=== PATIENT | female | born 1980 | race Caucasian/White ===

== ENCOUNTER 2018-05-04 12:40 | Emergency (ER) | payer OTHER ==
[2018-05-04 13:05] VITALS: BP 127/83
--- NOTE | 2018-05-04 13:52 | RADIOLOGY REPORT (SQ) ---
EXAM DESCRIPTION: CHEST 2 VIEWS COMPLETED DATE/TIME: 05/04/2018 1:42 pm REASON FOR STUDY: cough COMPARISON: None. EXAM PARAMETERS: NUMBER OF VIEWS: two views TECHNIQUE: Digital Frontal and Lateral radiographic views of the chest acquired. RADIATION DOSE: NA LIMITATIONS: none FINDINGS: LUNGS AND PLEURA: No opacities, masses or pneumothorax. No pleural effusion. MEDIASTINUM AND HILAR STRUCTURES: No masses or contour abnormalities. HEART AND VASCULAR STRUCTURES: Heart normal size. No evidence for failure. BONES: No acute findings. HARDWARE: None in the chest. OTHER: No other significant finding. IMPRESSION: NO ACUTE RADIOGRAPHIC FINDING IN THE CHEST. TECHNICAL DOCUMENTATION: JOB ID: [id number] [employer]- All Rights Reserved Reading location - IP/workstation name: [email or web address]
--- NOTE | 2018-05-04 14:14 | ER Document Report ---
HPI - HPI Pain Level: 2 Context: Patient is a 37-year-old female presents emergency department with a chief complaint of sinus congestion, nonproductive cough and body aches. states that she has been sick since Saturday. They did see primary care on and was given an antibiotic for her sore throat. states that he was concerned because he was told that her presentation is more consistent with a viral upper respiratory infection and he did not understand why the antibiotic is necessary. Patient is a non-smoker otherwise healthy female - EENT EENT: REPORTS: Sore Throat - RESPIRATORY Respiratory: REPORTS: Trouble Breathing - at night, Coughing Past Medical History - Social History Smoking Status: Current Every Day Smoker Chew tobacco use (# tins/day): No Frequency of alcohol use: None Drug Abuse: None Family History: Reviewed & Not Pertinent Patient has suicidal ideation: No Patient has homicidal ideation: No Renal/ Medical History: Denies: Hx Peritoneal Dialysis Past Surgical History: Reports: Hx Section Vertical Provider Document - CONSTITUTIONAL Agree With Documented VS: Yes Notes: PHYSICAL EXAM GENERAL: Alert, interacts well. HEENT: NCAT, pale conjunctiva, extraocular movements intact, pupils PERRL. external ear normal, no evidence of external auditory canal tenderness, blood/ drainage, cerumen impaction, TM intact without evidence of effusion, bulging, injection, MMM, Uvula midline. Airway patent. No evidence of tonsillar enlargement, peritonsillar abscess, retropharyngeal abscess. NECK: Full range of motion. Supple. Trachea midline. LUNGS: Clear to auscultation bilaterally, no wheezes, rales, or rhonchi. No respiratory distress. HEART: Regular rate and rhythm. No murmurs, gallops, or rubs. EXTREMITIES: Moves all 4 extremities spontaneously. No edema, radial and dorsalis pedis pulses 2/4 bilaterally. No cyanosis. NEUROLOGICAL: Alert and oriented x4. Normal speech. PSYCH: Normal affect, normal mood. SKIN: Warm, dry, normal turgor. No rashes or lesions noted. Course - Re-evaluation Re-evalutation: 05/04/18 14:14 Presentation is most consistent with a viral upper respiratory infection. Patient is overall well appearance, vitals within normal limits, well-hydrated. Patient denies any headache, neck pain, and has no evidence of meningismus on examination. Lungs are clear bilaterally. No evidence of respiratory distress. Based on clinical exam and history, I do not suspect an acute pneumonia, meningitis, strep pharyngitis, or an acute encephalitis. X-ray without any evidence of pneumonia. No laboratory or imaging testing is indicated at this time. Will discharge patient with return precautions and followup recommendations. They are in agreement this plan have verbalized understanding return precautions. - Vital Signs Vital signs: Temp Pulse Resp BP Pulse Ox 98.9 F 85 16 127/83 H 99 05/04/18 13:03 05/04/18 13:03 05/04/18 13:03 05/04/18 13:03 05/04/18 13:03 Discharge - Discharge Clinical Impression: URI (upper respiratory infection) Qualifiers: URI type: unspecified viral URI Qualified Code(s): J06.9 - Acute upper respiratory infection, unspecified Condition: Good Disposition: HOME, SELF-CARE Additional Instructions: Your symptoms are most likely due to a viral infection it should resolve over the next 7-14 days. You should take ycav-evf-kyomgmn guanfacine per bottle instructions to help thin the mucus. You can utilize Claritin-D or Lucia-D for decongestant and antihistamine for nasal congestion: I would recommend that you get gcso-xoo-kzonhqv oxymetazoline also known is afrin. Use only per bottle instructions and be sure to never use this for more than 3 days if you can develop severe rebound congestion. You may also use tylenol or ibuprofen as needed for aches and thorat discomfort. Please be sure to drink plenty of fluids and get rest. Return to the emergency department he began having difficulty breathing, chest pain, persistent vomiting, or any other symptoms that are concerning to you. Please stop taking your antibiotic it is contraindicated for your viral infection Prescriptions: Benzonatate [Tessalon Perle 100 mg Capsule] 100 mg PO ASDIR PRN #40 cap PRN Reason: Cough
== END 2018-05-04 14:19 | disposition home or self-care (01) ==
LOC: ER 12:40
DX: J06.9 Acute upper respiratory infection, unspecified (principal); R09.81 Nasal congestion; M79.1 Myalgia; F17.200 Nicotine dependence, unspecified, uncomplicated
CPT/HCPCS: 71046; 99283

== ENCOUNTER 2018-07-09 13:42 | Emergency (ER) | payer OTHER ==
[2018-07-09] MEDS ORDERED: NORMAL SALINE 1000 ML 1,000 ML IV ONE (14:34)
--- NOTE | 2018-07-09 14:34 | ER Document Report ---
ED Medical Screen (RME) - General Chief Complaint: Vaginal Bleeding Stated Complaint: VAGINAL BLEEDING Time Seen by Provider: 07/09/18 14:30 Notes: 37 years old female presents today with vaginal bleeding bleeding heavily passing clots for the last few days. Associated with general weakness and tiredness. With a history of irregular menstrual cycle. TRAVEL OUTSIDE OF THE [place] IN LAST 30 DAYS: No - Related Data Allergies/Adverse Reactions: No Known Allergies Allergy (Verified 07/09/18 13:46) Past Medical History - Social History Chew tobacco use (# tins/day): No Frequency of alcohol use: None Drug Abuse: None Renal/ Medical History: Denies: Hx Peritoneal Dialysis Past Surgical History: Reports: Hx Section Physical Exam - Vital signs Vitals: Temp Pulse Resp BP Pulse Ox 98.7 F 86 18 115/66 99 07/09/18 14:08 07/09/18 14:08 07/09/18 14:08 07/09/18 14:08 07/09/18 14:08 Course - Vital Signs Vital signs: Temp Pulse Resp BP Pulse Ox 98.7 F 86 18 115/66 99 07/09/18 14:08 07/09/18 14:08 07/09/18 14:08 07/09/18 14:08 07/09/18 14:08 Doctor's Discharge - Discharge Referrals: TONY CHATTERJEE MD [Primary Care Provider] - Follow up as needed
[2018-07-09 16:11] LABS: ABSOLUTE LYMPHOCYTES (AUTO) 1.7 10^3/uL (0.5-4.7); ABSOLUTE MONOCYTES (AUTO) 0.3 10^3/uL (0.1-1.4); ABSOLUTE NEUT (AUTO) 5.2 10^3/uL (1.7-8.2); BASOPHILS % (AUTO) 0.3 % (0-2); EOSINOPHILS % (AUTO) 0.3 % (0-6); HEMATOCRIT 34.2 % (36.0-47.0); HEMOGLOBIN 11.5 g/dL (12.0-15.5); MEAN CORPUSCULAR HEMOGLOBIN 27.7 pg (27.0-33.4); MEAN CORPUSCULAR HGB CONC 33.5 g/dL (32.0-36.0); MEAN CORPUSCULAR VOLUME 83 fl (80-97); MONOCYTES % (AUTO) 4.1 % (3-13); PLATELET COUNT 299 10^3/uL (150-450); RED BLOOD COUNT 4.13 10^6/uL (3.72-5.28); RED CELL DISTRIBUTION WIDTH 15.7 % (11.5-14.0); SEGMENTED NEUTROPHILS % (AUTO) 71.3 % (42-78); TOTAL CELLS COUNTED % (AUTO) 100 %; WHITE BLOOD COUNT 7.2 10^3/uL (4.0-10.5)
[2018-07-09 16:29] LABS: BILIRUBIN,URINE NEGATIVE (NEGATIVE); GLUCOSE, URINE NEGATIVE (NEGATIVE); KETONES,URINE NEGATIVE (NEGATIVE); LEUKOCYTE ESTERASE,URINE NEGATIVE (NEGATIVE); NITRITE,URINE NEGATIVE (NEGATIVE); PROTEIN,URINE NEGATIVE (NEGATIVE); URINE SPECIFIC GRAVITY 1.012; UROBILINOGEN,URINE NEGATIVE mg/dL (<2.0)
[2018-07-09 16:30] LABS: APPEARANCE,URINE CLOUDY; COLOR,URINE RED
--- NOTE | 2018-07-09 16:45 | ER Document Report ---
ED General - General Chief Complaint: Vaginal Bleeding Stated Complaint: VAGINAL BLEEDING Time Seen by Provider: 07/09/18 14:30 Notes: Patient presents with concern of vaginal bleeding that started approximately July 01 this year. Patient states that she is feeling 4-6 maxipads in a day. She presents because she has been feeling fatigued and some mild lightheadedness when walking. Denies any chest pain or shortness of breath or abdominal pain or pelvic pain. Denies any vaginal discharge smells or concerns of infection. She states that similar episode happened approximately this time last year while living in [place] and she was hospitalized for anemia with blood transfusions provided. Patient does not take any medications on a daily basis and is not on any estrogen or progesterone supplementation. No known medical problems other than history of dysfunctional uterine bleeding. She currently does not have an OB GEN her family care to recently moving to the area her is in the and she has TRAVEL OUTSIDE OF THE [place] IN LAST 30 DAYS: No - Related Data Allergies/Adverse Reactions: No Known Allergies Allergy (Verified 07/09/18 13:46) Past Medical History - Social History Smoking Status: Never Smoker Chew tobacco use (# tins/day): No Frequency of alcohol use: None Drug Abuse: None Family History: Reviewed & Not Pertinent Patient has suicidal ideation: No Patient has homicidal ideation: No Renal/ Medical History: Denies: Hx Peritoneal Dialysis Past Surgical History: Reports: Hx Section Review of Systems - Review of Systems Constitutional: No symptoms reported EENT: No symptoms reported Cardiovascular: No symptoms reported Respiratory: No symptoms reported Gastrointestinal: No symptoms reported Genitourinary: See HPI Female Genitourinary: No symptoms reported Musculoskeletal: No symptoms reported Skin: No symptoms reported Hematologic/Lymphatic: No symptoms reported Neurological/Psychological: No symptoms reported Physical Exam - Vital signs Vitals: Temp Pulse Resp BP Pulse Ox 98.7 F 86 18 115/66 99 07/09/18 14:08 07/09/18 14:08 07/09/18 14:08 07/09/18 14:08 07/09/18 14:08 - General General appearance: Appears well, Alert - HEENT Head: Normocephalic, Atraumatic Eyes: Normal Conjunctiva: Other - Mild pallor conjunctivae Pupils: PERRL - Respiratory Respiratory status: No respiratory distress Chest status: Nontender Breath sounds: Normal Chest palpation: Normal - Cardiovascular Rhythm: Regular Heart sounds: Normal auscultation Murmur: No - Abdominal Inspection: Normal Distension: No distension Bowel sounds: Normal Tenderness: Nontender - Back Back: Normal - Neurological Cognition: Normal Orientation: AAOx4 Course - Re-evaluation Re-evalutation: 07/09/18 17:19 Discussed case with OB GEN campus receptionist Dr. Lombardi. Hemoglobin slightly below normal at 11.5. Patient has normal vitals. Will provide Provera and refer to Dr. Lombardi for outpatient follow-up and evaluation. 07/09/18 19:06 Ultrasound shows small fibroid and possible degenerative fibroid. We will continue with plan to place patient on Provera and follow-up with Dr. Lombardi's office this early next week for further evaluation provided - Vital Signs Vital signs: Temp Pulse Resp BP Pulse Ox 98.7 F 86 18 115/66 99 07/09/18 14:08 07/09/18 14:08 07/09/18 14:08 07/09/18 14:08 07/09/18 14:08 - Laboratory Result Diagrams: 07/09/18 15:50 07/09/18 16:45 Laboratory results interpreted by me: 07/09/18 07/09/18 07/09/18 15:50 15:50 16:45 Hgb 11.5 L Hct 34.2 L RDW 15.7 H Chloride 110 H Creatinine 0.49 L Urine Blood LARGE H Discharge - Discharge Clinical Impression: Dysfunctional uterine bleeding Condition: Good Disposition: HOME, SELF-CARE Instructions: Dysfunctional Uterine Bleeding ([facility]) Prescriptions: Medroxyprogesterone Acet [Provera 10 Mg Tablet] 10 mg PO DAILY #20 tablet Referrals: MISTY LOMBARDI MD [ACTIVE STAFF] - Follow up in 3-5 days
[2018-07-09 17:23] LABS: ALANINE AMINOTRANSFERASE 23 U/L (9-52); ALBUMIN 4.2 g/dL (3.5-5.0); ALKALINE PHOSPHATASE 90 U/L (38-126); ANION GAP 12 (5-19); ASPARTATE AMINO TRANSFERASE 21 U/L (14-36); BILIRUBIN,DIRECT 0.2 mg/dL (0.0-0.4); BILIRUBIN,TOTAL 0.5 mg/dL (0.2-1.3); BLOOD UREA NITROGEN 8 mg/dL (7-20); CALCIUM 8.8 mg/dL (8.4-10.2); CARBON DIOXIDE 22 mmol/L (22-30); CHLORIDE 110 mmol/L (98-107); GLUCOSE 93 mg/dL (75-110); POTASSIUM 4.1 mmol/L (3.6-5.0); SODIUM 143.6 mmol/L (137-145); TOTAL PROTEIN 7.5 g/dL (6.3-8.2)
--- NOTE | 2018-07-09 18:47 | RADIOLOGY REPORT (SQ) ---
EXAM DESCRIPTION: U/S NON OB PEL W/DOPPLER COMPLETED DATE/TIME: 07/09/2018 6:04 pm REASON FOR STUDY: vag bleed LMP 06/30/2018. COMPARISON: None. TECHNIQUE: Dynamic and static grayscale images acquired of the pelvis via transabdominal approach an d recorded on PACS. Additional selected color Doppler and spectral images recorded. LIMITATIONS: None. FINDINGS: UTERUS: 14 mm posterior fibroid. There is a 5 x 8 x 5 mm hypoechoic area within the myome trium. ENDOMETRIAL STRIPE: No focal or generalized thickening. No masses. CERVIX: 2.8 cm. A nabothian cyst is present. RIGHT OVARY AND DOPPLER: Normal size, 1.8 x 1.2 x 1.2 cm. No worrisome masses. Normal arterial vascul ar flow without evidence for torsion. LEFT OVARY AND DOPPLER: Ovary not seen. FREE FLUID: None noted. OTHER: No other significant finding. MEASUREMENTS: UTERUS: 9.5 x 5.5 x 5.4 cm. ENDOMETRIAL STRIPE: 12 mm. RIGHT OVARY: 1.8 x 1.2 x 1.2 cm. LEFT OVARY: Ovary not seen. IMPRESSION: Small uterine fibroid. Smaller hypoechoic area may represent a degenerate fibroid. Nab othian cyst. TECHNICAL DOCUMENTATION: JOB ID: [id number] [employer]- All Rights Reserved Rev Reading location - IP/workstation name: [email or web address]
[2018-07-09 19:29] VITALS: BP 115/62
== END 2018-07-09 19:28 | disposition home or self-care (01) ==
LOC: ER 13:42
DX: N93.8 Other specified abnormal uterine and vaginal bleeding (principal); R53.83 Other fatigue; R42 Dizziness and giddiness; R23.1 Pallor
CPT/HCPCS: 99284; 96360; 36415; 85025; 81025; 80053; 81001; 76856; 93976; J7030

== ENCOUNTER 2018-08-05 10:21 | Emergency (ER) | payer OTHER ==
[2018-08-05] MEDS ORDERED: NORMAL SALINE 1000 ML 1,000 ML IV ONE (10:53)
[2018-08-05] MEDS ORDERED: ONDANSETRON HCL INJ/PF 4 MG/2 ML SDV IV ONE (10:53)
[2018-08-05] MEDS ORDERED: MORPHINE SULFATE 10 MG/ML INJ IV ONE (10:54)
--- NOTE | 2018-08-05 10:55 | ER Document Report ---
ED Medical Screen (RME) - General Chief Complaint: Abdominal Pain Stated Complaint: DIZZINESS Time Seen by Provider: 08/05/18 10:43 Notes: Patient is a 37-year-old female that presents to the emergency department for chief complaint of abdominal pain and pelvic pain. ROS: GENERAL: Denies fever or chills CV: Denies chest pain PHYSICAL EXAMINATION: Vital signs reviewed. GENERAL: Well-appearing, well-nourished and in no acute distress. HEAD: Atraumatic, normocephalic. EYES: Pupils equal round extraocular movements intact, conjunctiva are normal. ENT: Nares patent NECK: Normal range of motion CV: Heart regular rate and rhythm LUNGS: No respiratory distress Abdomen: Bilateral lower abdominal tenderness to palpation. Musculoskeletal: Normal range of motion NEUROLOGICAL: Normal speech PSYCH: Normal mood, normal affect. MDM: Patient seen and examined for rapid initial assessment. Vital signs reviewed. A comprehensive ED assessment and evaluation of the patient, analysis of test results and completion of the medical decision making process will be conducted by additional ED providers. *Note is created using voice recognition software and may contain spelling, syntax or grammatical errors. TRAVEL OUTSIDE OF THE [place] IN LAST 30 DAYS: No - Related Data Allergies/Adverse Reactions: No Known Allergies Allergy (Verified 08/05/18 10:45) Past Medical History - Social History Chew tobacco use (# tins/day): No Frequency of alcohol use: None Drug Abuse: None Renal/ Medical History: Denies: Hx Peritoneal Dialysis Past Surgical History: Reports: Hx Section Physical Exam - Vital signs Vitals: Temp Pulse Resp BP Pulse Ox 97.8 F 96 24 H 114/65 100 08/05/18 10:08/05/18 10:33 08/05/18 10:33 08/05/18 10:33 08/05/18 10:33 Course - Vital Signs Vital signs: Temp Pulse Resp BP Pulse Ox 97.8 F 96 24 H 114/65 100 08/05/18 10:33 08/05/18 10:33 08/05/18 10:33 08/05/18 10:33 08/05/18 10:33 Doctor's Discharge - Discharge Referrals: TONY CHATTERJEE MD [Primary Care Provider] - Follow up as needed
[2018-08-05 11:23] LABS: ABSOLUTE BASOPHILS # (AUTO) 0.1 10^3/uL (0.0-0.2); ABSOLUTE LYMPHOCYTES (AUTO) 1.6 10^3/uL (0.5-4.7); ABSOLUTE MONOCYTES (AUTO) 0.5 10^3/uL (0.1-1.4); ABSOLUTE NEUT (AUTO) 16.5 10^3/uL (1.7-8.2); BASOPHILS % (AUTO) 0.3 % (0-2); EOSINOPHILS % (AUTO) 0.1 % (0-6); HEMATOCRIT 35.5 % (36.0-47.0); HEMOGLOBIN 11.3 g/dL (12.0-15.5); LYMPHOCYTES % (AUTO) 8.7 % (13-45); MEAN CORPUSCULAR HEMOGLOBIN 26.1 pg (27.0-33.4); MEAN CORPUSCULAR HGB CONC 31.8 g/dL (32.0-36.0); MEAN CORPUSCULAR VOLUME 82 fl (80-97); MONOCYTES % (AUTO) 2.7 % (3-13); PLATELET COUNT 360 10^3/uL (150-450); RED BLOOD COUNT 4.32 10^6/uL (3.72-5.28); RED CELL DISTRIBUTION WIDTH 15.3 % (11.5-14.0); SEGMENTED NEUTROPHILS % (AUTO) 88.2 % (42-78); TOTAL CELLS COUNTED % (AUTO) 100 %; WHITE BLOOD COUNT 18.7 10^3/uL (4.0-10.5)
[2018-08-05 13:19] LABS: ALANINE AMINOTRANSFERASE 22 U/L (9-52); ALBUMIN 3.7 g/dL (3.5-5.0); ALKALINE PHOSPHATASE 81 U/L (38-126); ANION GAP 12 (5-19); ASPARTATE AMINO TRANSFERASE 18 U/L (14-36); BILIRUBIN,DIRECT 0.2 mg/dL (0.0-0.4); BILIRUBIN,TOTAL 0.2 mg/dL (0.2-1.3); BLOOD UREA NITROGEN 10 mg/dL (7-20); CALCIUM 8.1 mg/dL (8.4-10.2); CARBON DIOXIDE 19 mmol/L (22-30); CHLORIDE 109 mmol/L (98-107); GLUCOSE 104 mg/dL (75-110); LIPASE 149.7 U/L (23-300); POTASSIUM 4.3 mmol/L (3.6-5.0); SODIUM 139.7 mmol/L (137-145); TOTAL PROTEIN 6.8 g/dL (6.3-8.2)
[2018-08-05] MEDS ORDERED: DEXTROSE 5%-LACTATED RINGERS 1,000 ML IV ONE (13:37)
[2018-08-05 13:45] LABS: APPEARANCE,URINE SLIGHTLY-CLOUDY; BILIRUBIN,URINE NEGATIVE (NEGATIVE); COLOR,URINE YELLOW; GLUCOSE, URINE 150 mg/dL (NEGATIVE); KETONES,URINE TRACE mg/dL (NEGATIVE); LEUKOCYTE ESTERASE,URINE SMALL (NEGATIVE); NITRITE,URINE NEGATIVE (NEGATIVE); PROTEIN,URINE NEGATIVE (NEGATIVE); URINE SPECIFIC GRAVITY 1.014; UROBILINOGEN,URINE NEGATIVE mg/dL (<2.0)
--- NOTE | 2018-08-05 14:31 | ER Document Report ---
ED GI/ - General Mode of Arrival: Ambulatory Information source: Patient TRAVEL OUTSIDE OF THE [place] IN LAST 30 DAYS: No <FERNANDO GUZMAN - Last Filed: 08/05/18 14:28> <ANGELA HANNAH - Last Filed: 08/05/18 16:24> - General Chief Complaint: Abdominal Pain Stated Complaint: DIZZINESS Time Seen by Provider: 08/05/18 10:43 Notes: 37-year-old female who presents to the emergency department today with complaints of abdominal pain with associated vaginal bleeding. Patient has had vaginal bleeding since July 01 when she was seen in the emergency department. Patient was sent home on Provera and she states the bleeding became much less and was essentially spotting until recently. Patient states she woke up with new abdominal pain this morning. Patient states the pain is located in her left lower quadrant. Patient denies any nausea, vomiting, or fevers. (FERNANDO GUZMAN) - Related Data Allergies/Adverse Reactions: No Known Allergies Allergy (Verified 08/05/18 10:45) Past Medical History - General Information source: Patient - Social History Smoking Status: Never Smoker Cigarette use (# per day): No Chew tobacco use (# tins/day): No Frequency of alcohol use: None Drug Abuse: None Lives with: Family Family History: Reviewed & Not Pertinent Patient has suicidal ideation: No Patient has homicidal ideation: No Renal/ Medical History: Denies: Hx Peritoneal Dialysis Past Surgical History: Reports: Hx Section <FERNANDO GUZMAN - Last Filed: 08/05/18 14:28> Review of Systems - Review of Systems Constitutional: No symptoms reported EENT: No symptoms reported Cardiovascular: No symptoms reported Respiratory: No symptoms reported Gastrointestinal: See HPI, Abdominal pain. denies: Vomiting Genitourinary: No symptoms reported Female Genitourinary: See HPI, Vaginal bleeding Musculoskeletal: No symptoms reported Skin: No symptoms reported Hematologic/Lymphatic: No symptoms reported Neurological/Psychological: No symptoms reported -: Yes All other systems reviewed and negative <FERNANDO GUZMAN - Last Filed: 08/05/18 14:28> Physical Exam <FERNANDO GUZMAN - Last Filed: 08/05/18 14:28> - Genitourinary External exam: Normal Speculum exam: Cervix open Vaginal bleeding: Mild Bimanuel exam: Other - Uterus is exquisitely tender to palpate. <ANGELA HANNAH - Last Filed: 08/05/18 16:24> - Vital signs Vitals: Temp Pulse Resp BP Pulse Ox 97.8 F 96 24 H 114/65 100 08/05/18 10:33 08/05/18 10:33 08/05/18 10:33 08/05/18 10:33 08/05/18 10:33 - Notes Notes: Physical Exam: General: Alert, appears well. HEENT: Normocephalic. Atraumatic. PERRL. Extraocular movements intact. Oropharynx clear. Neck: Supple. Non-tender. Respiratory: No respiratory distress. Clear and equal breath sounds bilaterally. Cardiovascular: Regular rate and rhythm. Abdominal: Left lower quadrant and exquisite left pelvic tenderness with palpation, no right lower quadrant tenderness to palpation. No distension. Normal Bowel Sounds. Back: Non-tender. No deformity or step off. Extremities: Moves all four extremities. Upper extremities: Normal inspection. Normal ROM. Lower extremities: Normal inspection. No edema. Normal ROM. Neurological: Normal cognition. AAOx4. Normal speech. Psychological: Normal affect. Normal Mood. Skin: Warm. Dry. Normal color. (FERNANDO GUZMAN) - Genitourinary Notes: There is organized clot in the vagina and the endocervical canal. The cervix appears to be quite dilated, and easily allowed swab to collect high endocervical or endometrial cultures. The dark blood coming from the cervix does not appear to be purulent. (ANGELA HANNAH) Course - Laboratory Result Diagrams: 08/05/18 11:10 08/05/18 11:40 <FERNANDO GUZMAN - Last Filed: 08/05/18 14:28> - Laboratory Result Diagrams: 08/05/18 11:10 08/05/18 11:40 <ANGELA HANNAH - Last Filed: 08/05/18 16:24> - Vital Signs Vital signs: Temp Pulse Resp BP Pulse Ox 98.7 F 114 H 16 116/73 100 08/05/18 15:43 08/05/18 15:43 08/05/18 15:43 08/05/18 15:43 08/05/18 15:43 - Laboratory Laboratory results interpreted by me: 08/05/18 08/05/18 08/05/18 11:10 11:40 13:28 WBC 18.7 H Hgb 11.3 L Hct 35.5 L MCH 26.1 L MCHC 31.8 L RDW 15.3 H Seg Neutrophils % 88.2 H Lymphocytes % 8.7 L Monocytes % 2.7 L Absolute Neutrophils 16.5 H Chloride 109 H Carbon Dioxide 19 L Creatinine 0.45 L Calcium 8.1 L Urine Glucose (UA) 150 H Urine Ketones TRACE H Urine Blood LARGE H Ur Leukocyte Esterase SMALL H Discharge <FERNANDO GUZMAN - Last Filed: 08/05/18 14:28> <ANGELA HANNAH - Last Filed: 08/05/18 16:24> - Discharge Clinical Impression: Endometritis Leukocytosis Qualifiers: Leukocytosis type: unspecified Qualified Code(s): D72.829 - Elevated white blood cell count, unspecified Condition: Stable Disposition: HOME, SELF-CARE Additional Instructions: Endometritis: Endometritis is an infection of the inside of the uterus. It most commonly occurs after delivery of a baby or after uterus surgery. Symptoms are usually pelvic pain, fever, and discharge. Treatment is antibiotics. These are given by vein or by injection if the infection seems serious. It's important that you receive all recommended medication. Call the doctor or return at once if you develop increasing fever, lightheadedness, or increasing pain. Take the medications as prescribed. Plenty of fluids and rest. Follow-up with [facility] tomorrow, or with the [facility] group that you have an appointment with. RETURN TO THE EMERGENCY ROOM IF ANY NEW OR WORSENING SYMPTOMS. Prescriptions: Cephalexin Monohydrate [Keflex 500 mg Capsule] 500 mg PO QID #28 capsule Doxycycline Hyclate 100 mg PO BID #14 tablet Hydrocodone/Acetaminophen [Hydrocodon-Acetaminophen 5-325] 1 each PO Q4 PRN #15 tablet PRN Reason: For Pain Referrals: TONY CHATTERJEE MD [Primary Care Provider] - Follow up as needed [facility] [Provider Group] - Follow up tomorrow Scribe Attestation: 08/05/18 16:21 I personally performed the services described in the documentation, reviewed and edited the documentation which was dictated to the scribe in my presence, and it accurately records my words and actions. (ANGELA HANNAH) Scribe Documentation - Scribe Written by Evane:: Leonardo Montanez, 08/05/2018 1430 acting as scribe for :: Jackelin <FERNANDO GUZMAN - Last Filed: 08/05/18 14:28>
--- NOTE | 2018-08-05 15:24 | RADIOLOGY REPORT (SQ) ---
EXAM DESCRIPTION: CT ABD/PELVIS WITH IV ONLY COMPLETED DATE/TIME: 08/05/2018 3:07 pm REASON FOR STUDY: LLQ, suprapubic pain, WBC 18,000 COMPARISON: Pelvic ultrasound dated 07/09/2018 TECHNIQUE: CT scan of the abdomen and pelvis performed using helical scanning technique with dynamic intravenous contrast injection. No oral contrast. Images reviewed with lung, soft tissue, and bone windows. Reconstructed coronal and sagittal MPR images reviewed. Delayed images for evaluation of the urinary system also acquired. All images stored on PACS. All CT scanners at this facility use dose modulation, iterative reconstruction, and/or weight based d osing when appropriate to reduce radiation dose to as low as reasonably achievable (ALARA). [facility]: Dose Right [facility]: CareDose [facility]: Dose Right [facility]: Teradose 4D [facility]: [employer] CONTRAST TYPE AND DOSE: contrast/concentration: Isovue 350.00 mg/ml; Total Contrast Delivered: 50.0 ml; Total Saline Delivered: 37.0 ml RENAL FUNCTION: BUN 10, creatinine 0.45 RADIATION DOSE: CT Rad equipment meets quality standard of care and radiation dose reduction techniq ues were employed. CTDIvol: 4.8 - 5.5 mGy. DLP: 533 mGy-cm.. LIMITATIONS: None. FINDINGS: LOWER CHEST: No significant findings. No nodules or infiltrates. LIVER: There is a small hepatic cyst. Normal size. SPLEEN: Normal size. No focal lesions. PANCREAS: No masses. No significant calcifications. No adjacent inflammation or peripancreatic fluid collections. Pancreatic duct not dilated. GALLBLADDER: No identified stones by CT criteria. No inflammatory changes to suggest cholecystitis. ADRENAL GLANDS: No significant masses or asymmetry. RIGHT KIDNEY AND URETER: No solid masses. No significant calcifications. No hydronephrosis or hyd roureter. LEFT KIDNEY AND URETER: No solid masses. No significant calcifications. No hydronephrosis or hydr oureter. AORTA AND VESSELS: No aneurysm. No dissection. Renal arteries, SMA, celiac without stenosis. RETROPERITONEUM: There are small nonspecific retroperitoneal lymph nodes. BOWEL AND PERITONEAL CAVITY: No masses or inflammatory changes. No free fluid or peritoneal masses. APPENDIX: Normal. PELVIS: Endometrial stripe is thickened. There is fluid in the cervix. This appears to be new from prior pelvic ultrasound. There are small bilateral ovarian cysts. There appears to be trace free fl uid in the lateral adnexum. ABDOMINAL WALL: No masses. No hernias. BONES: No significant or acute findings. OTHER: No other significant finding. IMPRESSION: Thickened endometrium. There is fluid in the cervix. These findings are new from prior pelvic ultrasound done July 09. There is a trace amount of free fluid. TECHNICAL DOCUMENTATION: JOB ID: [id number] Quality ID # [id number]: Final reports with documentation of one or more dose reduction techniques (e.g., Au tomated exposure control, adjustment of the mA and/or kV according to patient size, use of iterative reconstruction technique) 2010 [employer]- All Rights Reserved Reading location - IP/workstation name: [email or web address]
[2018-08-05] MEDS ORDERED: KETOROLAC TROMETHAMINE INJ/PF 30 MG/1 ML SDV IV ONE (15:57)
[2018-08-05] MEDS ORDERED: CEFTRIAXONE 1 GM/D5W RTU 1 GM/50 ML RTUPB IV ONE (16:12)
[2018-08-05] MEDS ORDERED: DOXYCYCLINE HYCLATE 100 MG TABLET PO ONE (16:13)
[2018-08-05 16:37] LABS: BACTERIA (WET MOUNT) 4+ BACTERIA SEEN; RBCS (WET MOUNT) 4+ RBCS SEEN; T.VAGINALIS (WET MOUNT) NO TRICHOMONAS SEEN; WBCS (WET MOUNT) 2+ WBCS SEEN; YEAST (WET MOUNT) NO YEAST SEEN
[2018-08-05] MEDS ORDERED: CEFTRIAXONE SODIUM 1,000 MG in NORMAL SALINE 50 ML IV ONE (17:00)
[2018-08-05 17:55] LABS: CHLAM PCR NOT DETECTED (NOT DETECT); GON PCR NOT DETECTED (NOT DETECT)
[2018-08-05 18:06] VITALS: BP 112/62
== END 2018-08-05 18:06 | disposition home or self-care (01) ==
LOC: ER 10:21
DX: N71.9 Inflammatory disease of uterus, unspecified (principal); D72.829 Elevated white blood cell count, unspecified
CPT/HCPCS: 99284; 96361; 96375; 96367; 36415; 87070; 87210; 83690; 84703; 85025; 87075; 87077; 80053; 81001; 87491; 87591; 74177; J1885; J2270; J0696; J2405; J7030; 87205; 96374

== ENCOUNTER 2019-08-22 04:51 | Emergency (ER) | payer OTHER ==
[2019-08-22 05:50] LABS: ABSOLUTE EOSINOPHILS # (AUTO) 0.1 10^3/uL (0.0-0.6); ABSOLUTE LYMPHOCYTES (AUTO) 1.4 10^3/uL (0.5-4.7); ABSOLUTE MONOCYTES (AUTO) 0.4 10^3/uL (0.1-1.4); ABSOLUTE NEUT (AUTO) 6.2 10^3/uL (1.7-8.2); BASOPHILS % (AUTO) 0.4 % (0-2); EOSINOPHILS % (AUTO) 1.2 % (0-6); HEMATOCRIT 38.4 % (36.0-47.0); HEMOGLOBIN 12.7 g/dL (12.0-15.5); LYMPHOCYTES % (AUTO) 17.2 % (13-45); MEAN CORPUSCULAR HEMOGLOBIN 28.6 pg (27.0-33.4); MEAN CORPUSCULAR HGB CONC 33.1 g/dL (32.0-36.0); MEAN CORPUSCULAR VOLUME 87 fl (80-97); MONOCYTES % (AUTO) 4.7 % (3-13); PLATELET COUNT 264 10^3/uL (150-450); RED BLOOD COUNT 4.44 10^6/uL (3.72-5.28); RED CELL DISTRIBUTION WIDTH 14.9 % (11.5-14.0); SEGMENTED NEUTROPHILS % (AUTO) 76.5 % (42-78); TOTAL CELLS COUNTED % (AUTO) 100 %; WHITE BLOOD COUNT 8.1 10^3/uL (4.0-10.5)
[2019-08-22 06:13] LABS: ALBUMIN 4.4 g/dL (3.5-5.0); ALKALINE PHOSPHATASE 90 U/L (38-126); ANION GAP 11 (5-19); ASPARTATE AMINO TRANSFERASE 19 U/L (14-36); BILIRUBIN,DIRECT 0.1 mg/dL (0.0-0.4); BILIRUBIN,TOTAL 0.3 mg/dL (0.2-1.3); BLOOD UREA NITROGEN 14 mg/dL (7-20); CALCIUM 9.6 mg/dL (8.4-10.2); CARBON DIOXIDE 24 mmol/L (22-30); CHLORIDE 106 mmol/L (98-107); GLUCOSE 112 mg/dL (75-110); POTASSIUM 4.4 mmol/L (3.6-5.0); TOTAL PROTEIN 7.5 g/dL (6.3-8.2)
[2019-08-22] MEDS ORDERED: NORMAL SALINE 1000 ML 1,000 ML IV ONE (06:18)
[2019-08-22] MEDS ORDERED: MORPHINE SULFATE 10 MG/ML INJ IV ONE (06:18)
--- NOTE | 2019-08-22 06:25 | ER Document Report ---
ED GI/ - General Chief Complaint: Abdominal Pain Stated Complaint: ABDOMINAL PAIN Time Seen by Provider: 08/22/19 05:53 Primary Care Provider: TONY CHATTERJEE MD [Primary Care Provider] - Follow up as needed TRAVEL OUTSIDE OF THE [place] IN LAST 30 DAYS: No - HPI Location: Suprapubic Vaginal bleeding (Compared to normal period): Heavier. denies: Passing clots, Passing tissue Menstrual period history: Abnormal Notes: 08/22/19 06:20 This is a 38-year-old female who presents today with a complaint of suprapubic pain and vaginal bleeding for the past week. Patient states that she has had some spotting for about 2 to 3 weeks, but the bleeding increased over the past week. She describes irregular menstrual periods. She states her last normal period was about 3 months ago. Describes the symptoms as moderate. There are no obvious aggravating or relieving factors. She denies any vomiting or d iarrhea. She denies any epigastric pain. - Related Data Allergies/Adverse Reactions: No Known Allergies Allergy (Verified 08/05/18 10:45) Past Medical History - Social History Smoking Status: Never Smoker Frequency of alcohol use: None Drug Abuse: None Family History: Reviewed & Not Pertinent Patient has suicidal ideation: No Patient has homicidal ideation: No Renal/ Medical History: Denies: Hx Peritoneal Dialysis Past Surgical History: Reports: Hx Section Review of Systems - Review of Systems Cardiovascular: denies: Chest pain Gastrointestinal: Abdominal pain. denies: Diarrhea, Vomiting Genitourinary: denies: Dysuria, Discharge, Frequency, Flank pain Female Genitourinary: Heavy/abnormal periods, Irregular period, Vaginal bleeding. denies: Vaginal discharge -: Yes All other systems reviewed and negative Physical Exam - Vital signs Vitals: Temp Pulse Resp BP Pulse Ox 97.6 F 97 22 H 117/74 100 08/22/19 04:56 08/22/19 04:56 08/22/19 04:56 08/22/19 04:56 08/22/19 04:56 - General General appearance: Alert, Other - Patient appears uncomfortable, in pain. - HEENT Head: Normocephalic, Atraumatic Eyes: Normal Pupils: PERRL - Respiratory Respiratory status: No respiratory distress Chest status: Nontender Breath sounds: Normal Chest palpation: Normal - Cardiovascular Rhythm: Regular Heart sounds: Normal auscultation Murmur: No - Abdominal Inspection: Normal Distension: No distension Bowel sounds: Normal Tenderness: Tender - There is suprapubic tenderness on exam. There is no upper abdominal tenderness. No guarding or rebound. Organomegaly: No organomegaly - Genitourinary Speculum exam: Cervix closed Vaginal bleeding: Moderate [place] exam: Other - There is suprapubic tenderness appreciated. There is some bleeding appreciated. 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 No: Cervical motion tender, Adnexal mass, Adnexal tenderness - Neurological Neuro grossly intact: Yes Cognition: Normal Orientation: AAOx4 [place] Coma Scale Eye Opening: Spontaneous [place] Coma Scale Verbal: Oriented [place] Coma Scale Motor: Obeys Commands [place] Coma Scale Total: 15 Speech: Normal Motor strength normal: LUE, RUE, LLE, RLE Sensory: Normal - Skin Skin Temperature: Warm Skin Moisture: Dry Skin Color: Normal Course - Re-evaluation Re-evalutation: 08/22/19 06:24 Differential diagnosis includes ruptured ovarian cysts versus fibroids versus DU B versus vaginitis. Will get ultrasound. Will check basic labs. Will manage patient's pain. 08/22/19 08:46 Patient reevaluated patient feels much better. 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 She recommends Provera 10 mg twice daily for 10 days. Patient to follow-up on Saturday or Saturday. Have discussed patient's findings and follow-up with patient and family. She understands. She is stable for discharge. We will give her a dose of Diflucan for yeast infection. - Vital Signs Vital signs: Temp Pulse Resp BP Pulse Ox 97.6 F 97 22 H 117/74 100 08/22/19 04:56 08/22/19 04:56 08/22/19 04:56 08/22/19 04:56 08/22/19 04:56 - Laboratory Result Diagrams: 08/22/19 05:35 08/22/19 05:35 Laboratory results interpreted by me: 08/22/19 08/22/19 05:35 05:35 RDW 14.9 H Glucose 112 H Lipase 323.4 H Discharge - Discharge Clinical Impression: DUB (dysfunctional uterine bleeding), Candidal vulvovaginitis Condition: Good Disposition: HOME, SELF-CARE Instructions: Vaginal Bleeding ([facility]), Vaginal Yeast Infection ([facility]) Prescriptions: Naproxen 500 mg PO BID PRN #14 tablet PRN Reason: Medroxyprogesterone Acet [Provera 10 Mg Tablet] 10 mg PO BID #20 tablet Referrals: TONY CHATTERJEE MD [Primary Care Provider] - Follow up as needed IVAN FELDER MD [ACTIVE STAFF] - (Call on Saturday for follow-up appointment.)
[2019-08-22 06:31] LABS: RBCS (WET MOUNT) 1+ RBCS SEEN; T.VAGINALIS (WET MOUNT) NO TRICHOMONAS SEEN; WBCS (WET MOUNT) NO WBCS SEEN; YEAST (WET MOUNT) YEAST SEEN
[2019-08-22 07:58] LABS: CHLAM PCR NOT DETECTED (NOT DETECT)
--- NOTE | 2019-08-22 08:28 | RADIOLOGY REPORT (SQ) ---
EXAM DESCRIPTION: U/S NON OB PEL W/DOPPLER COMPLETED DATE/TIME: 08/22/2019 7:24 am REASON FOR STUDY: pelvic pain and vaginal bleeding COMPARISON: Pelvic ultrasound 07/09/2018 TECHNIQUE: Dynamic and static grayscale images acquired of the pelvis via endovaginal and transabdom inal approach and recorded on PACS. Additional selected color Doppler and spectral images recorded. LIMITATIONS: None. FINDINGS: UTERUS: Uterus is 12 x 6 x 6 cm in size with several small fibroids less than 3 cm in size . ENDOMETRIAL STRIPE: Diffusely thickened, 2 cm in thickness at the uterine fundus, with echogenic mate rial in the cervix likely blood clot. CERVIX: Endocervical canal is filled with heterogeneous mixed echogenicity material likely blood clot . Tumor could not be excluded. RIGHT OVARY AND DOPPLER: Normal size, 2.4 x 2.3 x 2.2 cm in size, with 1.6 cm and 2 cm simple cysts. No worrisome masses. Normal arterial vascular flow without evidence for torsion. LEFT OVARY AND DOPPLER: Unable to visualize the left ovary either transabdominal or endovaginal. Lef t adnexa not well seen due to adnexal bowel gas. FREE FLUID: None noted. OTHER: No other significant finding. IMPRESSION: Distended endometrial canal with mixed echogenicity material containing into the cervix. This most likely represents blood clot. Nonvisualization left ovary and adnexa. No right-sided ovarian worrisome masses or ovarian torsion COMMENT: Urine HCG negative today TECHNICAL DOCUMENTATION: JOB ID: [id number] [employer]- All Rights Reserved Rev-04/18 Reading location - IP/workstation name: [email or web address]
[2019-08-22] MEDS ORDERED: FLUCONAZOLE 100 MG TABLET PO ONE (08:47)
[2019-08-22 09:15] VITALS: BP 111/59
== END 2019-08-22 09:15 | disposition home or self-care (01) ==
LOC: ER 04:51
DX: N93.8 Other specified abnormal uterine and vaginal bleeding (principal); B37.3 Candidiasis of vulva and vagina; R10.30 Lower abdominal pain, unspecified; N92.6 Irregular menstruation, unspecified
CPT/HCPCS: 99284; 96361; 96374; 36415; 87210; 84702; 83690; 85025; 80053; 87491; 87591; 76856; 93976; J2270; J7030

== ENCOUNTER 2020-02-03 04:24 | Emergency (ER) | payer OTHER ==
--- NOTE | 2020-02-03 05:14 | ER Document Report ---
ED General - General Chief Complaint: Palpitations Stated Complaint: BLOOD PRESSURE ISSUES Time Seen by Provider: 02/03/20 04:58 Primary Care Provider: TONY CHATTERJEE MD [Primary Care Provider] - 02/11/20 Mode of Arrival: Ambulatory Information source: Patient Notes: This 39-year-old female presents emergency department with complaints of feeling agitated palpitations. Reports she was sleeping when she woke up and felt agitated. She denies fever nausea vomiting diarrhea. Reports she had a headache behind her eyes last night but no headache now. Patient [facility] Saturday for same symptoms and nothing was found. Patient reports she has been having high blood pressure. They checked it before she came to this ED and it was 131 systolic. She denies past medical history. Denies chest pain. Denies abdominal pain. Denies pain with void. Patient reports she has low back pain. Reports she has had it for over a year. reports they have set up an appointment with [facility] on February 10 for a full physical. TRAVEL OUTSIDE OF THE [place] IN LAST 30 DAYS: No - HPI Onset: Just prior to arrival Onset/Duration: Sudden Quality of pain: No pain Associated symptoms: None. denies: Chest pain Exacerbated by: Denies Relieved by: Denies Similar symptoms previously: Yes Recently seen / treated by doctor: Yes - Related Data Allergies/Adverse Reactions: No Known Allergies Allergy (Verified 02/03/20 04:30) Home Medications: VITAMINS Past Medical History - General Information source: Patient Last Menstrual Period: dec - Social History Smoking Status: Never Smoker Cigarette use (# per day): No Frequency of alcohol use: None Drug Abuse: None Lives with: Family Family History: Reviewed & Not Pertinent Patient has suicidal ideation: No Patient has homicidal ideation: No - Medical History Medical History: Negative Renal/ Medical History: Denies: Hx Peritoneal Dialysis Past Surgical History: Reports: Hx Section Review of Systems - Review of Systems Notes: Review HPI for review of systems., All other systems negative Physical Exam - Vital signs Vitals: Temp Pulse BP Pulse Ox 97.9 F 94 115/70 99 02/03/20 04:29 02/03/20 04:29 02/03/20 04:29 02/03/20 04:29 - General General appearance: Appears well, Alert In distress: None - HEENT Head: Normocephalic Eyes: Normal Conjunctiva: Normal Extraocular movements intact: Yes Eyelashes: Normal Pupils: PERRL Ears: Normal External canal: Normal Tympanic membrane: Normal Nasal: Normal Mouth/Lips: Normal Mucous membranes: Normal, Moist Pharynx: Normal. No: Erythema, Peritonsillar abscess Neck: Normal, Supple. No: Lymphadenopathy - Respiratory Respiratory status: No respiratory distress Chest status: Nontender Breath sounds: Normal Chest palpation: Normal - Cardiovascular Rhythm: Regular Heart sounds: Normal auscultation Murmur: No Normal capillary refill: Yes - Abdominal Inspection: Normal Distension: No distension Bowel sounds: Normal Tenderness: Nontender Organomegaly: No organomegaly - Back Back: Normal - Extremities General upper extremity: Normal ROM General lower extremity: Normal ROM, Normal weight bearing - Neurological Neuro grossly intact: Yes Cognition: Normal Orientation: AAOx4 [place] Coma Scale Eye Opening: Spontaneous [place] Coma Scale Verbal: Oriented [place] Coma Scale Motor: Obeys Commands [place] Coma Scale Total: 15 Speech: Normal Cerebellar coordination: Normal - Psychological Associated symptoms: Normal affect, Normal mood - Skin Skin Temperature: Warm Skin Moisture: Dry Skin Color: Normal Course - Re-evaluation Re-evalutation: 02/03/20 05:13 This 39-year-old female with no prior history presents emergency department with complaints of waking up feeling agitated. Reports she felt like her heart was racing. Palpitations. Denies chest pain denies abdominal pain. Denies history of cardiac disease. Patient is calm. Respiratory rate even unlabored. Patient and family instructed on blood work chest x-ray. They verbalized understanding. 02/03/20 07:01 All labs unremarkable TSH 2.10, chest x-ray negative. Vital signs stable. Patient resting quietly on the stretcher watching TV no distress. Patient and family instructed on all results. Instructed on the importance of monitoring her symptoms follow-up with her primary care provider as scheduled for full physical. They verbalized understanding. Laboratory 02/03/20 02/03/20 02/03/20 05:10 05:10 05:10 WBC 6.0 RBC 4.76 Hgb 13.7 Hct 39.1 MCV 82 MCH 28.8 MCHC 35.1 RDW 16.4 H Plt Count 241 Lymph % (Auto) 26.1 [place] % (Auto) 6.5 Eos % (Auto) 3.5 Baso % (Auto) 0.3 Absolute Neuts (auto) 3.8 Absolute Lymphs (auto) 1.6 Absolute Monos (auto) 0.4 Absolute Eos (auto) 0.2 Absolute Basos (auto) 0.0 Seg Neutrophils % 63.6 Sodium 140.6 Potassium 3.9 Chloride 106 Carbon Dioxide 23 Anion Gap 12 BUN 9 Creatinine 0.52 Est GFR ( Amer) > 60 Est GFR (MDRD) Non-Af > 60 Glucose 108 Calcium 9.3 Total Bilirubin 0.7 Direct Bilirubin 0.2 Neonat Total Bilirubin Not Reportable Neonat Direct Bilirubin Not Reportable Neonat Indirect Bili Not Reportable AST 20 ALT 18 Alkaline Phosphatase 101 Total Protein 8.0 Albumin 4.4 TSH 2.10 Urine Color Urine Appearance Urine pH Ur Specific [place] Urine Protein Urine Glucose (UA) Urine Ketones Urine Blood Urine Nitrite Urine Bilirubin Urine Urobilinogen Ur Leukocyte Esterase Urine WBC (Auto) Urine RBC (Auto) Urine Bacteria (Auto) Squamous Epi Cells Auto Urine Mucus (Auto) Urine Ascorbic Acid Urine HCG, Qual 02/03/20 02/03/20 05:28 05:28 WBC RBC Hgb Hct MCV MCH MCHC RDW Plt Count Lymph % (Auto) [place] % (Auto) Eos % (Auto) Baso % (Auto) Absolute Neuts (auto) Absolute Lymphs (auto) Absolute Monos (auto) Absolute Eos (auto) Absolute Basos (auto) Seg Neutrophils % Sodium Potassium Chloride Carbon Dioxide Anion Gap BUN Creatinine Est GFR ( Amer) Est GFR (MDRD) Non-Af Glucose Calcium Total Bilirubin Direct Bilirubin Neonat Total Bilirubin Neonat Direct Bilirubin Neonat Indirect Bili AST ALT Alkaline Phosphatase Total Protein Albumin TSH Urine Color STRAW Urine Appearance SLIGHTLY-CLOUDY Urine pH 6.0 Ur Specific [place] 1.004 Urine Protein NEGATIVE Urine Glucose (UA) NEGATIVE Urine Ketones NEGATIVE Urine Blood SMALL H Urine Nitrite NEGATIVE Urine Bilirubin NEGATIVE Urine Urobilinogen NEGATIVE Ur Leukocyte Esterase SMALL H Urine WBC (Auto) 4 Urine RBC (Auto) 3 Urine Bacteria (Auto) TRACE Squamous Epi Cells Auto 11 Urine Mucus (Auto) RARE Urine Ascorbic Acid NEGATIVE Urine HCG, Qual NEGATIVE 02/03/20 07:21 02/03/20 07:22 - Vital Signs Vital signs: Temp Pulse Resp BP Pulse Ox 97.9 F 94 14 114/81 98 02/03/20 04:29 02/03/20 04:29 02/03/20 06:16 02/03/20 06:16 02/03/20 06:16 - Laboratory Result Diagrams: 02/03/20 05:10 02/03/20 05:10 Laboratory results interpreted by me: 02/03/20 02/03/20 05:10 05:28 RDW 16.4 H Urine Blood SMALL H Ur Leukocyte Esterase SMALL H - Diagnostic Test Radiology reviewed: Image reviewed, Reports reviewed - EKG Interpretation by Me EKG shows normal: Sinus rhythm Rate: Normal Rhythm: NSR Additional EKG results interpreted by me: 02/03/20 05:[address] elevation no T wave inversion qtc 426 Discharge - Discharge Clinical Impression: Palpitations Condition: Stable Disposition: HOME, SELF-CARE Additional Instructions: *You have been evaluated for palpitations *Your chest x-ray was negative for any acute injury. Your labs were all within normal limits today. *Follow up with your provider as scheduled February 10 *Return to ED for worsening condition, changes, needs, chest pain difficulty breathing, concerns Referrals: TONY CHATTERJEE MD [Primary Care Provider] - 02/11/20
[2020-02-03 05:29] LABS: ABSOLUTE EOSINOPHILS # (AUTO) 0.2 10^3/uL (0.0-0.6); ABSOLUTE LYMPHOCYTES (AUTO) 1.6 10^3/uL (0.5-4.7); ABSOLUTE MONOCYTES (AUTO) 0.4 10^3/uL (0.1-1.4); ABSOLUTE NEUT (AUTO) 3.8 10^3/uL (1.7-8.2); BASOPHILS % (AUTO) 0.3 % (0-2); EOSINOPHILS % (AUTO) 3.5 % (0-6); HEMATOCRIT 39.1 % (36.0-47.0); HEMOGLOBIN 13.7 g/dL (12.0-15.5); LYMPHOCYTES % (AUTO) 26.1 % (13-45); MEAN CORPUSCULAR HEMOGLOBIN 28.8 pg (27.0-33.4); MEAN CORPUSCULAR HGB CONC 35.1 g/dL (32.0-36.0); MEAN CORPUSCULAR VOLUME 82 fl (80-97); MONOCYTES % (AUTO) 6.5 % (3-13); PLATELET COUNT 241 10^3/uL (150-450); RED BLOOD COUNT 4.76 10^6/uL (3.72-5.28); RED CELL DISTRIBUTION WIDTH 16.4 % (11.5-14.0); SEGMENTED NEUTROPHILS % (AUTO) 63.6 % (42-78); TOTAL CELLS COUNTED % (AUTO) 100 %
[2020-02-03 05:43] LABS: ALBUMIN 4.4 g/dL (3.5-5.0); ALKALINE PHOSPHATASE 101 U/L (38-126); ANION GAP 12 (5-19); ASPARTATE AMINO TRANSFERASE 20 U/L (14-36); BILIRUBIN,DIRECT 0.2 mg/dL (0.0-0.4); BILIRUBIN,TOTAL 0.7 mg/dL (0.2-1.3); BLOOD UREA NITROGEN 9 mg/dL (7-20); CALCIUM 9.3 mg/dL (8.4-10.2); CARBON DIOXIDE 23 mmol/L (22-30); CHLORIDE 106 mmol/L (98-107); GLUCOSE 108 mg/dL (75-110); POTASSIUM 3.9 mmol/L (3.6-5.0)
[2020-02-03 05:50] LABS: APPEARANCE,URINE SLIGHTLY-CLOUDY; BILIRUBIN,URINE NEGATIVE (NEGATIVE); COLOR,URINE STRAW; GLUCOSE, URINE NEGATIVE (NEGATIVE); KETONES,URINE NEGATIVE (NEGATIVE); LEUKOCYTE ESTERASE,URINE SMALL (NEGATIVE); NITRITE,URINE NEGATIVE (NEGATIVE); PROTEIN,URINE NEGATIVE (NEGATIVE); URINE SPECIFIC GRAVITY 1.004; UROBILINOGEN,URINE NEGATIVE mg/dL (<2.0)
--- NOTE | 2020-02-03 06:45 | RADIOLOGY REPORT (SQ) ---
PA and lateral chest radiograph: 02/03/2020 5:43 AM [facility] History: 39-year old patient with palpitations. Comparison: Chest radiograph performed 05/04/2018 Findings: The cardiomediastinal silhouette is normal in size. No pneumothorax is seen. No discrete pleural effusion is apparent. No acute airspace opacities are seen. Impression: No acute airspace opacities are seen.
--- NOTE | 2020-02-03 07:35 | EKG REPORT ---
SEVERITY:- NORMAL ECG - SINUS RHYTHM : Confirmed by: Roberto Venegas MD 03-Feb-2020 07:34:40
[2020-02-03 08:26] VITALS: BP 107/74
== END 2020-02-03 08:28 | disposition home or self-care (01) ==
LOC: ER 04:24
DX: R00.2 Palpitations (principal); R51 Headache; M54.5 Low back pain
CPT/HCPCS: 36415; 71046; 80053; 81001; 81025; 84443; 85025; 93005; 93010; 99285